=== PATIENT | female | born 1985 | race Caucasian/White ===

== ENCOUNTER 2016-05-07 13:06 | Emergency (ER) | payer OTHER ==
--- NOTE | ~2016-05-07 | CR133 ---
[facility]. [facility] A Service of [facility] & [facility] RADIOLOGY TEXT RESULTS PATIENT: SUDHA SANDRA LOCATION: SED : 83 UNIT #: [id number] AGE: [address]: Mona Ybarra APRN SEX: F ORDER DR: [id number] [place] [id number] E MR#: [id number] Acc #: [id number] NAME: SUDHA SANDRA : 1985 SEX: F STUDY DATE/TIME: 05/07/2016 13:20 UNIT: SED ROOM: STUDY DESCRIPTION: CR Forearm 2 View Rt Attending Physician: Mona Ybarra A.P.R.N. Ordering Physician: Mona Santo A.P.R.N. Primary Care Physician: Primary Care Physician No MEDICAL IMAGING REPORT This report is preliminary unless electronic signature is present. EXAM Right forearm radiograph INDICATIONS Tripped on the stairs. Fall. Right forearm pain. TECHNIQUE/COMPARISON 2 views of the right forearm without comparison FINDINGS No fracture or dislocation. Alignment at the elbow and wrist is anatomic. IMPRESSION Negative right forearm. Dictated by... Morris Hackett M.D. THIS IS AN ELECTRONICALLY VERIFIED REPORT Morris Hackett M.D. at 05/08/2016 2:13 PM C/parul TD: 05/07/2016 19:32 JOB #: [id number] MEDICAL IMAGING REPORT Page 1 of 1
--- NOTE | ~2016-05-07 | CR282 ---
[facility] A Service of [facility] & [facility] RADIOLOGY TEXT RESULTS PATIENT: SUDHA SANDRA LOCATION: SED : 83 UNIT #: [id number] AGE: [address]: Mona Ybarra APRN SEX: F ORDER DR: [id number] [place] [id number] E MR#: [id number] Acc #: [id number] NAME: SUDHA SANDRA : 1985 SEX: F STUDY DATE/TIME: 05/07/2016 13:20 UNIT: SED ROOM: STUDY DESCRIPTION: CR Wrist Min 3 View Rt Attending Physician: Mona Ybarra A.P.R.N. Ordering Physician: Mona Santo A.P.R.N. Primary Care Physician: Primary Care Physician No MEDICAL IMAGING REPORT This report is preliminary unless electronic signature is present. EXAM Right wrist radiograph INDICATIONS Tripped and fell. Right wrist and distal forearm pain. Fell down stairs. TECHNIQUE/COMPARISON 3 views of the right wrist compared to the right forearm FINDINGS There is no acute fracture or dislocation. Alignment is anatomic. No foreign body. IMPRESSION Negative right wrist. Dictated by... Morris Hackett M.D. THIS IS AN ELECTRONICALLY VERIFIED REPORT Morris Hackett M.D. at 05/08/2016 2:13 PM [facility]/parul TD: 05/07/2016 19:34 JOB #: [id number] MEDICAL IMAGING REPORT Page 1 of 1
[~2016-05-07 13:06] MED LIST: BENADRYL PO; DARVOCET-N 1001 TAB PO; ELIMITE60 GM TOP; LORTAB 7.5-5001 TAB PO; MEDROL PO; NO MEDICATIONS; ULTRAM PO; VICODIN 5/500 T1 TAB PO
== END 2016-05-07 14:14 | disposition home or self-care (01) ==
LOC: SED 13:06
DX: S60.211A Contusion of right wrist, initial encounter (principal); S50.11XA Contusion of right forearm, initial encounter; Z88.1 Allergy status to other antibiotic agents; Z88.5 Allergy status to narcotic agent; W01.0XXA Fall on same level from slipping, tripping and stumbling without subsequent striking against object, initial encounter; Y92.009 Unspecified place in unspecified non-institutional (private) residence as the place of occurrence of the external cause
CPT/HCPCS: 29280; 73090; 73110; 99283